=== PATIENT | male | born 1940 | race Caucasian/White ===

== ENCOUNTER 2016-05-27 09:17 | Observation (INO) | payer MEDICARE ==
[2016-05-27] MEDS ORDERED: Sodium Chloride 0.9% 1,000 ML IV STA ×2 (09:58→10:58)
--- NOTE | 2016-05-27 10:04 | ED PDOC ---
Arrival/HPI - General Chief Complaint: GI Problem Time Seen by Provider: 05/27/16 09:48 Historian: Patient - History of Present Illness Narrative History of Present Illness (Text): 05/27/16 09:49 Pt is a 76 year old male, whose past medical history includes hypertension and high cholesterol, who presents to the emergency room complaining of frequent vomiting and diarrhea since yesterday. Patient's family notes that patient cannot tolerate any food and his diarrhea is a very dark color. Patient's notes that she had diarrhea as well but it is not uncommon for her due to a stomach problems. At present, patient experiences abdominal discomfort (crampy in nature) and dry mouth. Patient denies any other complaint at this time. No fever. PMD: Dr. Kaci Baxter Time/Duration: 24 hours Symptom Onset: Sudden Symptom Course: Intermittent Activities at Onset: Light Context: Home Past Medical History - Provider Review Nursing Documentation Reviewed: Yes - Infectious Disease Hx of Infectious Diseases: None - Tetanus Immunization Tetanus Immunization: Unknown - Cardiac Hx Hypertension: Yes - Psychiatric Hx Psychophysiologic Disorder: No Hx Anxiety: No Hx Bipolar Disorder: No Hx Depression: No Hx Emotional Abuse: No Hx Hallucinations: No Hx Panic Disorder: No Hx Post Traumatic Stress Disorder: No Hx Psychosis: No Hx Physical Abuse: No Hx Schizophrenia: No Hx Sexual Abuse: No Hx Substance Use: No - Past Surgical History Past Surgical History: No Previous - Surgical History Hx Cholecystectomy: Yes Other/Comment: hernia - Anesthesia Hx Anesthesia: Yes Hx Anesthesia Reactions: No Hx Malignant Hyperthermia: No - Suicidal Assessment Feels Threatened In Home Enviroment: No Family/Social History - Physician Review Nursing Documentation Reviewed: Yes Family/Social History: Diabetes, Neoplasm/Cancer Smoking Status: Never Smoked Hx Alcohol Use: No Hx Substance Use: No Hx Substance Use Treatment: No Allergies/Home Meds Allergies/Adverse Reactions: Allergies No Known Allergies Allergy (Verified 05/27/16 09:25) Home Medications: Home Meds Medication Instructions Recorded Confirmed Atorvastatin [Lipitor] 40 mg PO DAILY 04/18/14 05/27/16 amLODIPine [Norvasc] 10 mg PO DAILY 04/18/14 05/27/16 Review of Systems - Physician Review All systems were reviewed & negative as marked: Yes - Review of Systems Constitutional: absent: Fevers, Night Sweats Eyes: absent: Vision Changes ENT: absent: Rhinorrhea Respiratory: absent: SOB Cardiovascular: absent: Chest Pain Gastrointestinal: Stool Changes, Diarrhea, Nausea, Vomiting Genitourinary Male: absent: Urinary Output Changes Musculoskeletal: absent: Back Pain Skin: absent: Pruritis Neurological: absent: Dizziness Endocrine: absent: Polyuria Hemo/Lymphatic: absent: Easy Bleeding Psychiatric: absent: Depression Physical Exam Vital Signs Reviewed: Yes Vital Signs Temp Pulse Resp BP Pulse Ox 05/27/16 11:30 101 H 14 123/63 95 05/27/16 09:26 97.9 F 107 H 15 153/79 H 93 L Temperature: Afebrile Blood Pressure: Hypertensive Pulse: Tachycardic Respiratory Rate: Normal Appearance: Positive for: Well-Appearing, Non-Toxic, Comfortable Pain Distress: None Mental Status: Positive for: Alert and Oriented X 3 - Systems Exam Head: Present: Atraumatic, Normocephalic Pupils: Present: PERRL Extroacular Muscles: Present: EOMI Conjunctiva: Present: Normal Ears: Present: Normal Mouth: Present: Dry Nose (External): Present: Atraumatic Neck: Present: Normal Range of Motion Respiratory/Chest: Present: Clear to Auscultation, Good Air Exchange. No: Respiratory Distress, Accessory Muscle Use Cardiovascular: Present: Regular Rate and Rhythm, Normal S1, S2. No: Murmurs Abdomen: Present: Other (protuberant abdomen). No: Tenderness, Normal Bowel Sounds (hyperactive bowel sounds) Rectal: No: Occult Blood Back: Present: Other (moles present on back) Upper Extremity: Present: Normal Inspection. No: Cyanosis, Edema Lower Extremity: Present: Normal Inspection. No: Edema Neurological: Present: GCS=15, Speech Normal, Motor Func Grossly Intact, Normal Sensory Function Skin: Present: Warm, Dry, Rashes Psychiatric: Present: Alert, Oriented x 3, Normal Insight, Normal Concentration Medical Decision Making ED Course and Treatment: 05/27/16 09:49 Impression: Vomiting/Diarrhea Differential Diagnosis included but are not limited to: Gastroenteritis, infectious diarrhea--bacterial or viral in etiology Plan: -- EKG -- Labs -- Pepcid -- IV fluids -- Urinalysis -- Reassess and disposition Progress Notes: Reviewed EKG, sinus tachycardia at 103 bpm. Occasional EVC's, no ST-t wave changes. Pt w/ elevated BUN/Creatinine--will place on observation for further hydration; discussed with Medicine senior integration developer (Dr. Causey) and he agrees w/ plan - Lab Interpretations Lab Results: 05/27/16 10:29 05/27/16 10:29 Lab Results 05/27/16 11:20: Hemoglobin A1c 6.4, Uric Acid 9.2 H, Triglycerides 175 H, Cholesterol 166, LDL Cholesterol Direct 89, HDL Cholesterol 42, TSH 3rd Generation 1.12, Hepatitis A IgM Ab Negative, Hep Bs Antigen Negative, Hep B Core IgM Ab Negative, Hepatitis C Antibody Negative 05/27/16 10:30: Stool Occult Blood Negative 05/27/16 10:29: WBC 10.4 D, RBC 4.89, Hgb 14.7, Hct 41.8 L, MCV 85.5, MCH 30.1 , MCHC 35.2, RDW 14.4, Plt Count 306, MPV 10.2, Gran % 85.0 H, Lymph % (Auto) 7.1 L, Sauk % (Auto) 7.8 H, Eos % (Auto) 0.0 L, Baso % (Auto) 0.1, Gran # 8.80 H , Lymph # 0.7 L, Sauk # 0.8 H, Eos # 0.0, Baso # 0.01, PT 11.7, INR 1.08, APTT 26.3, Sodium 140, Potassium 3.9, Chloride 98, Carbon Dioxide 26, Anion Gap 20, BUN 39 H, Creatinine 2.0 H, Est GFR ( Amer) 39, Est GFR (Non-Af Amer) 32 , Random Glucose 143 H, Calcium 9.8, Total Bilirubin 0.6, AST 71 H, ALT 96 H, Alkaline Phosphatase 77, Total Protein 9.1 H, Albumin 5.0 H, Globulin 4.1, Albumin/Globulin Ratio 1.2, Amylase 94, Lipase 193 I have reviewed the lab results: Yes - RAD Interpretation Radiology Orders: 05/27/16 11:32 ABD & PELVIS PO CONTRAST ONLY [CT] Stat 05/27/16 11:43 ABDOMEN COMPLETE [US] Urgent - EKG Interpretation EKG Interpretation (Text): Ordered, reviewed, and independently interpreted the EKG. Rate : 103 BPM Rhythm : Sinus Tachycardia Interpretation : Occasional EVC's, no ST-T wave changes. - Medication Orders Current Medication Orders: Acetaminophen (Tylenol 325mg Tab) 650 mg PO Q4H PRN PRN Reason: Other Allopurinol (Zyloprim) 100 mg PO DAILY FOR[facility]LY [facility], [facility] Last Admin: 05/28/16 09:17 Dose: 100 MG Dicyclomine HCl (Bentyl) 10 mg PO QID PRN PRN Reason: ABDOMINAL PAIN Sodium Chloride (Sodium Chloride 0.9%) 1,000 mls @ 100 mls/hr IV .Q10H LARRY Stop: 05/31/16 15:44 Last Admin: 05/28/16 09:17 Dose: 100 MLS/HR eMAR Start Stop Document 05/28/16 09:17 EP (Rec: 05/28/16 09:17 EP [id number]) Intravenous Solution Start Date 05/28/16 Start Time 09:17 Ceftriaxone Sodium (Rocephin 1 Gram Ivpb) 100 mls @ 100 mls/hr IVPB DAILY [facility], [facility]1983 PRN Reason: Protocol Last Admin: 05/28/16 17:13 Dose: 100 MLS/HR eMAR Start Stop Document 05/28/16 17:13 EP (Rec: 05/28/16 17:14 EP [id number]) Intravenous Solution Start Date 05/28/16 Start Time 17:14 End Date 05/28/16 End time 18:14 Total Infusion Time 60 Lactobacillus Acidophilus (Bacid Acidophilus) 1 cap PO BID FOR[facility]LY [facility], 1928–1983 Last Admin: 05/28/16 17:13 Dose: 1 CAP Metoprolol Tartrate (Lopressor) 25 mg PO Q12H [facility], [facility]1983 Last Admin: 05/28/16 11:03 Dose: Metronidazole (Flagyl) 500 mg PO Q8 [facility]1983 PRN Reason: Protocol Last Admin: 05/28/16 13:57 Dose: 500 MG Ondansetron HCl (Zofran Inj) 4 mg IVP Q4H PRN PRN Reason: Nausea/Vomiting Pantoprazole Sodium (Protonix Inj) 40 mg IVP DAILY [facility] Last Admin: 05/28/16 09:17 Dose: 40 MG IVP Administration Document 05/28/16 09:17 EP (Rec: 05/28/16 09:17 EP [id number]) Charges for Administration # of IVP Administrations 1 Discontinued Medications Acetaminophen (Tylenol 325mg Tab) 650 mg PO ONCE ONE Stop: 05/28/16 08:19 Last Admin: 05/28/16 08:45 Dose: 650 MG MAR Pain/Vitals Document 05/28/16 08:45 EP (Rec: 05/28/16 08:46 EP [id number]) Vitals Temperature (97.6 F-99.6 F) 100.3 F Temperature Source Oral Dicyclomine HCl (Bentyl) 10 mg PO QID PRN PRN Reason: ABDOMINAL PAIN Diphenhydramine HCl (Benadryl) 25 mg PO ONCE ONE Stop: 05/27/16 22:51 Last Admin: 05/27/16 22:59 Dose: 25 MG Famotidine (Pepcid) 20 mg IVP STAT STA Stop: 05/27/16 10:00 Last Admin: 05/27/16 10:49 Dose: 20 MG IVP Administration Document 05/27/16 10:49 SS (Rec: 05/27/16 10:49 [facility] [id number] Charges for Administration # of IVP Administrations 1 Sodium Chloride (Sodium Chloride 0.9%) 1,000 mls @ 999 mls/hr IV .Q1H1M STA Stop: 05/27/16 10:58 Last Admin: 05/27/16 10:34 Dose: 999 MLS/HR eMAR Start Stop Document 05/27/16 10:34 SS (Rec: 05/27/16 10:35 [facility] [id number] Intravenous Solution Start Date 05/27/16 Start Time 10:35 End Date 05/27/16 End time 11:36 Total Infusion Time 61 Sodium Chloride (Sodium Chloride 0.9%) 1,000 mls @ 999 mls/hr IV .Q1H1M STA Stop: 05/27/16 11:58 Last Admin: 05/27/16 11:51 Dose: 999 MLS/HR eMAR Start Stop Document 05/27/16 11:51 SS (Rec: 05/27/16 11:51 [facility] [id number]) Intravenous Solution Start Date 05/27/16 Start Time 11:51 End Date 05/27/16 End time 12:52 Total Infusion Time 61 Potassium Phosphate 15 mmole/ (Sodium Chloride) 255 mls @ 42.5 mls/hr IVPB ONCE ONE Stop: 05/28/16 13:18 Last Admin: 05/28/16 09:13 Dose: 42.5 MLS/HR Comments: awaitng pharm then IV bolus. eMAR Start Stop Document 05/28/16 09:13 EP (Rec: 05/28/16 09:14 EP [id number]) Intravenous Solution Start Date 05/28/16 Start Time 09:14 Sodium Chloride (Sodium Chloride 0.9%) 250 mls @ 999 mls/hr IV .Q16M STA Stop: 05/28/16 08:54 Last Admin: 05/28/16 08:47 Dose: 999 MLS/HR eMAR Start Stop Document 05/28/16 08:47 EP (Rec: 05/28/16 08:47 [id number]) Intravenous Solution Start Date 05/28/16 Start Time 08:47 End Date 05/28/16 End time 09:47 Total Infusion Time 60 Ibuprofen (Motrin Tab) 400 mg PO STAT STA Stop: 05/27/16 11:15 Last Admin: 05/27/16 11:21 Dose: 400 MG MAR Pain/Vitals Document 05/27/16 11:21 SS (Rec: 05/27/16 11:28 SS [facility] [id number]) Location Left, Right or Bilateral Bilateral Pain Location Body Sound Installation Worker Intensity 5 Scale Used Numeric Influenza Virus Vaccine (Fluvirin) 45 mcg IM .ONCE ONE Stop: 05/27/16 16:50 Iohexol (Omnipaque 240 (50 Ml)) Confirm Administered Dose 50 ml .ROUTE .STK-MED ONE Stop: 05/27/16 11:46 Metoprolol Tartrate (Lopressor) 25 mg PO ONCE ONE Stop: 05/28/16 08:20 Last Admin: 05/28/16 08:45 Dose: 25 MG MAR Pulse and Blood Pressure Document 05/28/16 08:45 EP (Rec: 05/28/16 08:45 EP [id number]) Pulse Pulse Rate (60-90) 120 Blood Pressure Blood Pressure (100/60-150/90) 118/66 Pneumococcal Polyvalent Vaccine (Pneumovax 23 Vaccine) 0.5 ml IM .ONCE ONE Stop: 05/27/16 16:50 Potassium Chloride (Potassium Chloride Oral Soln) 40 meq PO STAT STA Stop: 05/28/16 07:20 Last Admin: 05/28/16 08:46 Dose: 40 MEQ - Scribe Statement The provider has reviewed the documentation as recorded by the Lashae Rayo Provider Scribe Attestation: All medical record entries made by the Scribe were at my direction and personally dictated by me. I have reviewed the chart and agree that the record accurately reflects my personal performance of the history, physical exam, medical decision making, and the department course for this patient. I have also personally directed, reviewed, and agree with the discharge instructions and disposition. Disposition/Present on Arrival - Present on Arrival Any Indicators Present on Arrival: No History of DVT/PE: No History of Uncontrolled Diabetes: No Urinary Catheter: No History of Decub. Ulcer: No History Surgical Site Infection Following: None - Disposition Have Diagnosis and Disposition been Completed?: Yes Diagnosis: Gastroenteritis Disposition: HOSPITALIZED Disposition Time: 11:45 Condition: FAIR
[2016-05-27 10:43] LABS: ADD MANUAL DIFF? NO
[2016-05-27 10:50] LABS: BASO # 0.01 K/mm3 (0.0-2.0); BASO % 0.1 % (0.0-3.0); HEMATOCRIT 41.8 % (42.0-52.0); LYMPH # 0.7 (1.2-3.4); LYMPH % 7.1 % (22.0-35.0); MEAN CELL VOLUME 85.5 fL (80.0-105.0); MEAN CORPUSCULAR HEMOGLOBIN 30.1 pg (25.0-35.0); MEAN CORPUSCULAR HGB CONC 35.2 g/dl (31.0-37.0); MEAN PLATELET VOLUME 10.2 fl (7.0-11.0); MONO # 0.8 (0.1-0.6); MONO % 7.8 % (1.0-6.0); PLATELET COUNT 306 10^3/uL (120.0-450.0); RED CELL DISTRIBUTION WIDTH 14.4 % (11.5-14.5); WHITE BLOOD COUNT 10.4 10^3/ul (4.5-11.0)
[2016-05-27 10:55] LABS: ALB/GLOB RATIO 1.2 (1.1-1.8); BILIRUBIN,TOTAL 0.6 mg/dL (0.2-1.3); CALCIUM 9.8 mg/dL (8.4-10.5); POTASSIUM 3.9 mmol/L (3.6-5.0); TOTAL PROTEIN 9.1 g/dL (5.8-8.3)
[2016-05-27 10:58] LABS: INR 1.08 (0.93-1.08); PARTIAL THROMBOPLASTIN TIME 26.3 Seconds (23.7-30.8)
[2016-05-27] MEDS ORDERED: Iohexol 240 (50 ml) ONE (11:45)
[2016-05-27 11:52] LABS: URIC ACID 9.2 mg/dL (3.5-8.5)
[2016-05-27] MEDS: Sodium Chloride 0.9% 1,000 ML IV SCH ×2 (12:38→22:43)
[2016-05-27 13:01] LABS: URINE BILIRUBIN NEGATIVE (NEGATIVE); URINE BLOOD LARGE (NEGATIVE); URINE COLOR YELLOW (YELLOW); URINE GLUCOSE (UA) NEGATIVE (NEGATIVE); URINE KETONE NEGATIVE (NEGATIVE); URINE LEUKOCYTE ESTERASE NEGATIVE Leu/uL (NEGATIVE); URINE PROTEIN 30 mg/dL (<30 mg/dL); URINE UROBILINOGEN 0.2 E.U./dL (<1 E.U./dL)
[2016-05-27 13:03] LABS: URINE APPEARANCE SL CLOUDY (CLEAR)
[2016-05-27 13:11] LABS: URINE BACTERIA FEW (NEG); URINE EPITHELIAL CELLS 0 - 2 /hpf (0-5); URINE WBC 0 - 2 /hpf (0-6)
--- NOTE | 2016-05-27 13:51 | US ---
HISTORY: TRANSAMINITIS COMPARISON: None. TECHNIQUE: Sonographic evaluation of the abdomen. FINDINGS: LIVER: Measures 20 cm. Diffuse increased echogenicity of the liver parenchyma. No mass. No intrahepatic bile duct dilatation. GALLBLADDER: Nonvisualized consistent with prior cholecystectomy COMMON BILE DUCT: Measures 6.4 mm. No stones. No dilatation. PANCREAS: Unremarkable as visualized. No mass. No ductal dilatation. RIGHT KIDNEY: Measures 11cm. Normal echogenicity. No calculus, mass, or hydronephrosis. LEFT KIDNEY: Measures 11cm. Normal echogenicity. No calculus, mass, or hydronephrosis. SPLEEN: Normal in size and contour. No mass. AORTA: No aneurysmal dilatation. IVC: Unremarkable. OTHER FINDINGS: Prominent bowel gas IMPRESSION: Hepatomegaly with diffuse increased liver echogenicity. The latter consistent with diffuse fatty infiltration or diffuse liver parenchymal disease Status postcholecystectomy. No dilated ducts
--- NOTE | 2016-05-27 14:11 | HP ---
The patient is a 76-year-old male, presented to the Emergency Room in the morning hours today complesteban leon of a 1-day history of nausea, vomiting, diarrhea with dark stool and frequent urination since . The patient stated that he was fine until after he was shoveling snow and after that, later in the evening yesterday and afternoon, the patient developed above symptoms. A 13-system review wa s pertinent, positive for above dictated. A 13-system review was done. Pertinent positives dictated above. CODE STATUS: Full code. LIVING WILL AND ADVANCED DIRECTIVE: None. ALLERGIES: None. Height is 5 feet 7 inches. Weight is 180 pounds. BMI is 28.2. ALLERGIES: None. HOME MEDICATIONS: Norvasc 10 mg daily, Lipitor 40 mg daily. SOCIAL HISTORY: Negative for smoking, negative for alcohol, negative for substance abuse. OCCUPATIONAL HISTORY: Not employed at present. FAMILY HISTORY: Negative. PROCEDURE HISTORY: The patient had an endoscopy and colonoscopy according to the patient's daughter, , a few years ago by Dr. Elder in [place]. PAST MEDICAL AND SURGICAL HISTORY: History of hypertension, dyslipidemia, history of cholecystectomy , history of hernia surgery, history of dyslipidemia, hypercholesterolemia, hypertension, history of hernia surgery. PHYSICAL EXAMINATION: GENERAL: The patient seen initially in stretcher #4 in the Emergency Room. The patient was later ev aluated in room 563, bed 2. VITAL SIGNS: T-max 97.9, heart rate 101, 107, blood pressure 153/79-123/63, respirations 14-15, O2 s at 95%. The patient is seen lying in the stretcher. HEAD: Normocephalic, atraumatic. HEENT: Shows pink conjunctivae, dry oral mucosa. NECK: No neck rigidity. CHEST: Symmetrical. LUNGS: Shows no rales, crackles, or wheezing. CARDIOVASCULAR: S1, S2, regular rhythm. ABDOMEN: Protuberant, distended, positive hyperactive bowel sound, questionable epigastric periumbil ical guarding noted. No rebound tenderness noted. No costovertebral angle tenderness. GENITALIA: Male. RECTAL: Deferred. EXTREMITIES: Shows no pitting edema, no calf tenderness, no Homans sign. NEUROLOGIC: The patient is alert, awake, oriented x 3. Cranial nerves II-XII intact. GAIT: Not tested. MUSCULOSKELETAL: Shows a body mass index of 28. PSYCHIATRIC: Negative for anxiety. Negative for depression. Negative for suicidal or homicidal venu ation. Negative for visual or auditory hallucination. VASCULAR: Palpable pulses. DIAGNOSTICS: CBC: WBC 10.4, hemoglobin and hematocrit 14.7 and 42, platelets 306, granulocytes 85%. PT, PTT 11.7 and 26.3. Sodium 140, potassium 3.9, chloride 98, CO2 26, anion gap 20, BUN is 39, cr eatinine 2.0, GFR 39, glucose 143. Uric acid 9.2. Calcium 9.8, AST 71, ALT 96, total protein 9.1, a lbumin 5.0. Triglyceride 175, cholesterol 166, LDL 89, HDL 42. Amylase and lipase are normal at 94 and 193. TSH is 1.12. Urine pH 6.0, specific gravity is greater than 1.030, protein 30, large blood , few bacteria. Stool occult blood negative. The patient had an abdominal ultrasound done in the Emergency Room for evaluation of transaminitis, w hich shows hepatomegaly with liver size of 20 cm x 1.1 cm x 0.4 cm x 10 cm with increased echogenicit y, cholecystectomy noted, bile duct 0.64 mm, spleen and inferior vena cava within normal limits, bila teral kidneys were normal. CAT scan of the abdomen and pelvis pending. The patient was seen and evaluated in the Emergency Room by Dr. Calderón, the ER physician. The patient was given Motrin 400. The patient was given Pepcid 20 IV. IV fluid was given, 2 liters were given by Dr. Brennan Calderón and patient was advised to be admitted to medicine service. IMPRESSION AND PLAN: 1. Nausea, vomiting and diarrhea, etiology unclear at this time. 2. Possible gastroenteritis versus questionable and possible colitis. 3. Tachycardia. 4. History of hypertension and dyslipidemia. 5. Acute kidney injury and acute renal failure. 6. Granulocytosis. 7. Acute kidney injury. 8. Hyperglycemia. 9. Hyperuricemia. 10. Transaminitis. 11. History of dyslipidemia with hypertriglyceridemia and hypercholesterolemia. 12. Proteinuria and microscopic hematuria and bacteriuria. 13. Hepatic steatosis and hepatomegaly. 14. Status post cholecystectomy. The patient was seen and evaluated in the Emergency Room in room 563, bed 2. The patient at present has been admitted to [facility]. The patient has been ordered hemoglobin A1c, hepatitis panel, PSA, serial CMP, LFT, magnesium, phosphorus, CBC ordered. C. diff toxin ordered. Stool cultu res ordered. CONSULTATION: Gastroenterology. CURRENT MEDICATIONS: 1. Bentyl has been ordered 10 mg q.i.d. p.r.n. for abdominal pain and cramping. 2. Protonix 40 IV daily. 3. IV fluids 0.9 normal saline at 100 mL an hour. 4. Zofran 4 mg IV q. 4 p.r.n. 5. Allopurinol 100 mg p.o. daily. CAT scan of the abdomen and pelvis with oral contrast is ordered. At present, patient is in the proc ess of drinking the oral contrast. The patient's EKG, though ordered, but I am unable to find the EK G on the chart, which will be reviewed. The patient is started on liquid diet, out of bed. ERIC stoc kings have been ordered. At present, patient was seen with the patient's family including the a nd the daughter, . I have explained to the patient and the patient's family about the diagnosti c test results. All the details of further diagnostic therapeutic intervention, need for gastroenter ology evaluation, need for possible gastroenterology workup, need for further management, treatment, and all possible scenarios was discussed and explained to the patient and the patient's daughter and the at length and all questions and concerns answered to their satisfaction. At present, patien t's further management will be dependent upon the patient's clinical condition, hemodynamic status, a nd as per patient's response to therapeutic intervention, as per patient's diagnostic test results an d as per recommendation by all the physicians involved in the care of the patient. Dictated and electronically signed, not read. Sylvester Causey MD cc: [id number] TT: 05/27/2016 14:10:44 en
--- NOTE | 2016-05-27 15:42 | CT ---
PROCEDURE: CT Abdomen and Pelvis without intravenous contrast HISTORY: ??GASTROENTERITIS COMPARISON: None. TECHNIQUE: Without contrast.. Contrast Dose: Radiation dose: Total exam DLP = mGy-cm. FINDINGS: LOWER THORAX: Unremarkable. LIVER: Unremarkable. No gross lesion or ductal dilatation. GALLBLADDER AND BILE DUCTS: Gallbladder removed PANCREAS: Unremarkable. No gross lesion or ductal dilatation. SPLEEN: Unremarkable. ADRENALS: Unremarkable. No mass. KIDNEYS AND URETERS: Unremarkable. No hydronephrosis. No solid mass. VASCULATURE: Unremarkable. No aortic aneurysm. BOWEL: Unremarkable. No obstruction. No gross mural thickening. APPENDIX: Unremarkable. Normal appendix. PERITONEUM: Unremarkable. No free fluid. No free air. LYMPH NODES: Unremarkable. No enlarged lymph nodes. BLADDER: Unremarkable. REPRODUCTIVE: Calcifications are seen in the prostate BONES: No acute fracture. OTHER FINDINGS: None. IMPRESSION: No acute findings
[2016-05-27 16:39] VITALS: RESP 20
[2016-05-27 16:49] VITALS: BMI 28.1
[2016-05-27] MEDS ORDERED: Pneumococcal 23-Valent Vaccine IM ONE (16:49)
[2016-05-27] MEDS ORDERED: Influenza Vaccine 45 MCG/0.5 ml IM ONE (16:49)
--- NOTE | 2016-05-27 16:52 | CARD ---
APPROVED REPORT EKG Measurement Heart [id number] IA [id number] <Conclusion> Sinus tachycardia with premature ventricular complexes NSSTW changes Prolonged QTc
[2016-05-27 20:34] LABS: FREE T4 0.82 ng/dL (0.78-2.19); T4 6.2 ug/dL (5.5-11.0)
[2016-05-28 06:39] LABS: ADD MANUAL DIFF? NO
[2016-05-28 06:56] LABS: ALKALINE PHOSPHATASE 64 U/L (38-133); ALT/SGPT 81 U/L (7-56); AST/SGOT 149 U/L (15-59); BILIRUBIN,DIRECT 0.3 mg/dL (0.0-0.4); BILIRUBIN,TOTAL 0.6 mg/dL (0.2-1.3); BLOOD UREA NITROGEN 19 mg/dL (7-21); CALCIUM 7.9 mg/dL (8.4-10.5); CARBON DIOXIDE 24 mmol/L (21-33); CHLORIDE 105 mmol/L (98-107); GFR AFRICAN-AMERICAN > 60; GLUCOSE,RANDOM 115 mg/dL (70-110); MAGNESIUM 1.8 mg/dL (1.7-2.2); PHOSPHOROUS 2.4 mg/dL (2.5-4.5); POTASSIUM 3.2 mmol/L (3.6-5.0); SODIUM 141 mmol/L (132-148); TOTAL PROTEIN 7.3 g/dL (5.8-8.3)
[2016-05-28 07:11] LABS: BASO # 0.01 K/mm3 (0.0-2.0); BASO % 0.1 % (0.0-3.0); GRAN # 6.89 (1.4-6.5); GRAN % 78.6 % (50.0-68.0); HEMATOCRIT 36.6 % (42.0-52.0); LYMPH # 0.9 (1.2-3.4); LYMPH % 10.3 % (22.0-35.0); MEAN CELL VOLUME 85.1 fL (80.0-105.0); MEAN CORPUSCULAR HEMOGLOBIN 29.8 pg (25.0-35.0); MEAN PLATELET VOLUME 9.9 fl (7.0-11.0); PLATELET COUNT 231 10^3/uL (120.0-450.0); RED CELL DISTRIBUTION WIDTH 14.5 % (11.5-14.5); WHITE BLOOD COUNT 8.8 10^3/ul (4.5-11.0)
[2016-05-28] MEDS ORDERED: Potassium Phosphate 15 MMOLE in Sodium Chloride 0.9% 250 ML IVPB ONE (07:19)
[2016-05-28] MEDS ORDERED: Potassium Chloride 40 mEq/30 ml LIQ UD PO STA (07:19)
[2016-05-28] MEDS ORDERED: Sodium Chloride 0.9% 250 ML IV STA (08:39)
[2016-05-28] MEDS: Lactobacillus Acidophilus 500 MU Cap PO SCH ×2 (08:45→17:13)
[2016-05-28] MEDS: Sodium Chloride 0.9% 1,000 ML IV SCH (09:17)
--- NOTE | 2016-05-28 10:28 | CARD ---
APPROVED REPORT EKG Measurement Heart [id number] <Conclusion> Sinus tachycardia Nonspecific ST abnormality Mildly prolonged QTc No change
--- NOTE | 2016-05-28 10:43 | CON ---
DATE: 05/28/2016 REQUESTING PHYSICIAN: Dr. Causey. REASON FOR CONSULTATION: I have been asked to see this 76-year-old male who comes to the hospital [facility] a 1-day history of nausea, vomiting, and profuse watery diarrhea. The patient states that he was well the day prior to these symptoms. He denies any ingestion of unusual foods, recent travel, or re cent antibiotic use. He denied any abdominal pain. The patient has taken food since admission to [facility], he has not had any nausea and vomiting. His diarrhea has subsided. He did have a colono scopy about 5 years ago. PAST MEDICAL HISTORY: Notable for hypertension, hyperlipidemia. PAST SURGICAL HISTORY: Notable for cholecystectomy, hernia surgery. SOCIAL HISTORY: Denies cigarette smoking or alcohol use. FAMILY HISTORY: Noncontributory. REVIEW OF SYSTEMS: A 14-point review of systems is notable for nausea, vomiting, diarrhea. PHYSICAL EXAMINATION: GENERAL: Well-developed male lying in bed in no acute distress. VITAL SIGNS: Reveal temperature of 100.3, blood pressure 118/66, heart rate of 120. HEENT: Reveals sclerae to be white, conjunctivae pink. Oral mucosa is moist. NECK: Supple. CHEST: Reveals lungs to be clear. HEART: Reveals a regular rate and rhythm. ABDOMEN: Soft, nontender. No mass. EXTREMITIES: Show no edema. LABORATORY DATA: Reveal potassium 3.2, AST 149, ALT 81. Albumin is 3.7. CBC reveals white blood ce ll count 8.8, hemoglobin 12.8, platelet count of 231,000. Stool for occult blood was negative. CT s can of the abdomen and pelvis is negative for any acute findings. Ultrasound of the abdomen shows an enlarged fatty liver. IMPRESSION: A 76-year-old male with a 1-day history of nausea, vomiting, diarrhea. His symptoms hav e essentially resolved. He is tolerating food. I suspect that this was a gastroenteritis. RECOMMENDATIONS: 1. Check stool for C and S, O and P, and C. diff. 2. If the patient continues to improve clinically, he can be discharged home with outpatient followu p. Seng Cosby MD cc: [id number] TT: 05/28/2016 10:42:18 Confirmation # [id number] Dictation # [id number]
--- NOTE | 2016-05-28 11:49 | PN ---
DATE: 05/28/2016 The patient is seen today in room 573, bed 1. The patient was seen lying in the bed. Overnight nurs e's notes were reviewed. The patient had loose bowel movement and diarrhea last night. PHYSICAL EXAMINATION: VITAL SIGNS: The patient's T-max is 100.3, heart rate went up to 120. Blood pressure fluctuatin/79, 125/63, 118/66. Respirations 20, O2 sat 96%. HEAD: Normocephalic, atraumatic. EENT: Shows pinkish conjunctivae. Dry oral mucosa. NECK: No neck rigidity. CHEST: Symmetrical. LUNGS: Shows no rales, crackles, or wheezing. CARDIOVASCULAR: S1, S2, regular rhythm. ABDOMEN: Soft, protuberant, positive bowel sounds. GENITALIA: Male. RECTAL: Deferred. EXTREMITIES: Shows no pitting edema, no calf tenderness, no Homans' sign. NEUROLOGIC: The patient is alert, awake, oriented x 3. Cranial nerves II-XII intact. GAIT: Indepe ndent. VASCULAR: Palpable pulses. MUSCULOSKELETAL: Shows a body mass index of 28.2. PSYCHIATRIC: Negative. VASCULAR: Palpable pulses. DIAGNOSTICS: 05/28/2016: WBC 8.8, hemoglobin and hematocrit 12.8 and 36.6, platelet 231. Granulocy julian down to 79% from 85%. Sodium 141, potassium 3.2, chloride 105, CO2 of 24, anion gap 15, BUN 19, creatinine 1.2, GFR greater than 60, glucose 115, hemoglobin A1c 6.4, uric acid 9.2, calcium 7.9, hanny sphorus 2.4, magnesium 1.8. AST went up to 149, ALT 81. Lactic acid and procalcitonin level ordered . PSA 2.2. TSH 1.12, T4 6.2. Stool occult blood negative. Hepatitis A, B, C serologies are negati ve. CAT scan of the abdomen, ultrasound and EKG reviewed. EKG from this morning shows sinus tachyca rdia, nonspecific ST changes. Abdominal ultrasound and CAT scan of the abdomen and pelvis were revie wed. IMPRESSION AND PLAN: 1. Questionable and probable systemic inflammatory response syndrome with fever, tachycardia. 2. Granulocytosis. 3. Uric acid 9.2. 4. Tachycardia. 5. Normocytic anemia. 6. Hyperuricemia. 7. Transaminitis. 8. Hypokalemia. 9. Prediabetes with hemoglobin A1c of 6.4. 10. Hypokalemia and hypophosphatemia. 11. Proteinuria. 12. Microscopic hematuria, bacteriuria. 13. Status post cholecystectomy. 14. Hepatomegaly with fatty infiltration of the liver. 15. Cholecystectomy. 16. Prostatic calcification. 17. Sinus tachycardia. 18. Nausea, vomiting, diarrhea (resolving). 19. Questionable gastroenteritis versus questionable colitis. 20. History of hypertension, dyslipidemia. 21. Acute kidney injury versus acute renal failure (resolved). 22. Hyperglycemia with prediabetes with hemoglobin A1c of 6.4. 23. Proteinuria, microscopic hematuria, bacteriuria. 24. Hepatic steatosis and hepatomegaly. PLAN: At this time, the patient has been ordered stat lactic acid. Serial labs have been ordered. Blood cultures, C. diff toxin and stool cultures, stool ova and parasite ordered. Urine cultures ord ered. CURRENT CONSULTATIONS: Infectious disease (Dr. Browne), GI (Dr. Cosby). MEDICATIONS: The patient started on: 1. Bacid 1 capsule twice a day. 2. Bentyl 10 mg q.i.d. p.r.n. 3. Flagyl 500 p.o. q. 8. 4. Lopressor 25 mg q. 12. 5. The patient has been supplemented potassium p.o. and K-Phos rider. 6. Protonix 40 IV daily. 7. IV fluid bolus has been given 250, then 100 mL an hour 0.9 normal saline. 8. Tylenol 650 mg q. 4 hours p.r.n. for temperature greater than or equal to 99.5. 9. Zofran 4 mg IV q. 4. 10. Allopurinol 100 mg daily. Chest x-ray, PA and lateral, ordered. The patient is on liquid diet. Out of bed, ERIC stockings have been ordered. At present, patient's further management will be dependent upon the patient's clinica l condition, hemodynamic status, and as per patient's response to therapeutic intervention, as per [place] stroenterology and infectious disease recommendation. Dictated and electronically signed; not read. Sylvester Causey MD cc: [id number] TT: 05/28/2016 11:48:35 Confirmation # [id number] Dictation # [id number] mn
--- NOTE | 2016-05-28 14:36 | RAD ---
HISTORY: low grade temp COMPARISON: No prior. TECHNIQUE: Chest PA and lateral FINDINGS: LUNGS: No active pulmonary disease. PLEURA: No significant pleural effusion identified. No pneumothorax apparent. CARDIOVASCULAR: Normal. OSSEOUS STRUCTURES: No significant abnormalities. VISUALIZED UPPER ABDOMEN: Normal. OTHER FINDINGS: None. IMPRESSION: No active disease.
--- NOTE | 2016-05-28 16:48 | CP.PCM.CON ---
History of Present Illness - History of Present Illness History of Present Illness: 76 year old male with PMH of HTN, dyslipidemia, S/P cholecystectomy, history of hernia surgery came in to [facility] complaining of multiple episodes of bilious vomiting associated with nausea which started about 2 days ago. About 3 days ago the patient apparently took cabbage soup together with his . A day later he started having the symptoms. His is apparently having diarrhea today. He denies chest pain, no headache or dizziness, has some abdominal cramping, no fever at home but had low grade fever while admitted, no dysuria, no hematuria, no dysphagia or odynophagia, no sore throat, no rhinorrhea, no cough, no SOB, no chest pain. He denies hospitalization or antibiotic use in the past 3 months and has not had any recent travel outside of [place] either. He denies animal contacts. Because of the low grade fever , Infectious Diseases consult is requested to further evaluate and manage. Social history: denies smoking, no alcohol abuse, no illicit drug use; lives at home with his ; currently unemployed Review of Systems - Review of Systems All systems: reviewed and no additional remarkable complaints except (as per HPI ) Past Patient History - Infectious Disease Hx of Infectious Diseases: None - Tetanus Immunizations Tetanus Immunization: Unknown - Past Medical History & Family History Past Medical History?: Yes Past Family History: Reviewed and not pertinent - Past Social History Smoking Status: Former Smoker Alcohol: None Drugs: Denies Home Situation {Lives}: With Family - CARDIAC Hx Hypercholesterolemia: Yes Hx Hypertension: Yes Other/Comment: vein stripping rle 2 yrs ago - INTEGUMENTARY Other/Comment: skin discolorations rle from vein strippoing 2 yrs ago - MUSCULOSKELETAL/RHEUMATOLOGICAL Hx Falls: No - GASTROINTESTINAL Hx Gastrointestinal Disorders: Yes (upper mid abd hernia no sx, found 15 yrs ago ) - PSYCHIATRIC Hx Substance Use: No - SURGICAL HISTORY Hx Cholecystectomy: Yes - ANESTHESIA Hx Anesthesia: Yes Hx Anesthesia Reactions: No Hx Malignant Hyperthermia: No Meds Home Medications: Home Medication List Medication Instructions Recorded Confirmed Type Allopurinol [Zyloprim] 100 mg PO DAILY #30 tab 05/28/16 Rx Dicyclomine [Bentyl] 10 mg PO QID PRN #30 cap 05/28/16 Rx Lactobacillus Acidophilus [Bacid 1 cap PO BID #10 cap 05/28/16 Rx Acidophilus] metroNIDAZOLE [Flagyl] 500 mg PO Q8 #30 tab 05/28/16 Rx Allergies/Adverse Reactions: Allergies Allergy/AdvReac Type Severity Reaction Status Date / Time No Known Allergies Allergy Verified 05/27/16 09:25 - Medications Medications: Current Medications Acetaminophen (Tylenol 325mg Tab) 650 mg PO Q4H PRN PRN Reason: Other Allopurinol (Zyloprim) 100 mg PO DAILY [facility] Last Admin: 05/27/16 18:24 Dose: 100 mg Dicyclomine HCl (Bentyl) 10 mg PO QID PRN PRN Reason: ABDOMINAL PAIN Sodium Chloride (Sodium Chloride 0.9%) 1,000 mls @ 100 mls/hr IV .Q10H [facility] Stop: 05/31/16 15:44 Last Admin: 05/27/16 22:43 Dose: 100 mls/hr Potassium Phosphate 15 mmole/ (Sodium Chloride) 255 mls @ 42.5 mls/hr IVPB ONCE ONE Stop: 05/28/16 13:18 Lactobacillus Acidophilus (Bacid Acidophilus) 1 cap PO BID [facility] Last Admin: 05/28/16 08:45 Dose: 1 cap Metoprolol Tartrate (Lopressor) 25 mg PO Q12H [facility] Metronidazole (Flagyl) 500 mg PO Q8 [facility] PRN Reason: Protocol Last Admin: 05/28/16 08:46 Dose: 500 mg Ondansetron HCl (Zofran Inj) 4 mg IVP Q4H PRN PRN Reason: Nausea/Vomiting Pantoprazole Sodium (Protonix Inj) 40 mg IVP DAILY [facility] Last Admin: 05/27/16 11:39 Dose: 40 mg Physical Exam - Constitutional Appears: Non-toxic, No Acute Distress - Head Exam Head Exam: NORMAL INSPECTION - ENT Exam ENT Exam: Mucous Membranes Moist - Neck Exam Neck exam: Negative for: Lymphadenopathy, Meningismus - Respiratory Exam Respiratory Exam: Decreased Breath Sounds. absent: Rales - Cardiovascular Exam Cardiovascular Exam: +S1, +S2 - GI/Abdominal Exam GI & Abdominal Exam: Soft. absent: Tenderness Results - Vital Signs Recent Vital Signs: Last Vital Signs Temp 100.3 F H 05/28/16 08:45 Pulse 120 H 05/28/16 08:45 Resp 20 05/28/16 07:30 BP 118/66 05/28/16 08:45 Pulse Ox 96 05/28/16 07:30 - Labs Result Diagrams: 05/28/16 06:30 05/28/16 06:30 Labs: Laboratory Results - last 24 hr 05/27/16 05/27/16 05/27/16 12:50 13:26 19:50 WBC RBC Hgb Hct MCV MCH MCHC RDW Plt Count MPV Gran % Lymph % (Auto) [place] % (Auto) Eos % (Auto) Baso % (Auto) Gran # Lymph # [place] # Eos # Baso # Sodium Potassium Chloride Carbon Dioxide Anion Gap BUN Creatinine Est GFR ( Amer) Est GFR (Non-Af Amer) Random Glucose Calcium Phosphorus Magnesium Total Bilirubin Direct Bilirubin AST ALT Alkaline Phosphatase Total Protein Albumin Globulin Albumin/Globulin Ratio Prostate Specific Ag 2.2 Free T4 0.82 Thyroxine (T4) 6.2 Urine Color Yellow Urine Appearance Sl cloudy Urine pH 6.0 Ur Specific Golden >= 1.030 Urine Protein 30 H Urine Glucose (UA) Negative Urine Ketones Negative Urine Blood Large H Urine Nitrate Negative Urine Bilirubin Negative Urine Urobilinogen 0.2 Ur Leukocyte Esterase Negative Urine RBC 1 - 3 Urine WBC 0 - 2 Ur Epithelial Cells 0 - 2 Urine Bacteria Few 05/28/16 06:30 WBC 8.8 RBC 4.30 Hgb 12.8 L Hct 36.6 L MCV 85.1 MCH 29.8 MCHC 35.0 RDW 14.5 Plt Count 231 MPV 9.9 Gran % 78.6 H Lymph % (Auto) 10.3 L [place] % (Auto) 11.0 H Eos % (Auto) 0.0 L Baso % (Auto) 0.1 Gran # 6.89 H Lymph # 0.9 L [place] # 1.0 H Eos # 0.0 Baso # 0.01 Sodium 141 Potassium 3.2 L Chloride 105 Carbon Dioxide 24 Anion Gap 15 BUN 19 Creatinine 1.2 Est GFR ( Amer) > 60 Est GFR (Non-Af Amer) 59 Random Glucose 115 H Calcium 7.9 L Phosphorus 2.4 L Magnesium 1.8 Total Bilirubin 0.6 Direct Bilirubin 0.3 AST 149 H ALT 81 H Alkaline Phosphatase 64 Total Protein 7.3 Albumin 3.7 Globulin 3.6 Albumin/Globulin Ratio 1.0 L Prostate Specific Ag Free T4 Thyroxine (T4) Urine Color Urine Appearance Urine pH Ur Specific Golden Urine Protein Urine Glucose (UA) Urine Ketones Urine Blood Urine Nitrate Urine Bilirubin Urine Urobilinogen Ur Leukocyte Esterase Urine RBC Urine WBC Ur Epithelial Cells Urine Bacteria Assessment & Plan - Assessment and Plan (Free Text) Plan: Assessment Consider acute gastroenteritis; no evidence of C diff infection on stool exam HTN dyslipidemia S/P cholecystectomy history of hernia surgery Plan Started patient on Rocephin and Flagyl pending stool cx, stool for O and P, fecal leukocytes Follow up blood cx as well Will follow clinically and monitor clinical response
[2016-05-28] MEDS: cefTRIAXone 1 gm 100 ML IVPB SCH (17:13)
[2016-05-29] MEDS: Sodium Chloride 0.9% 1,000 ML IV SCH ×2 (05:46→05:48)
[2016-05-29 06:46] LABS: ADD MANUAL DIFF? NO
[2016-05-29 07:14] LABS: BASO # 0.01 K/mm3 (0.0-2.0); BASO % 0.1 % (0.0-3.0); EOS % 0.1 % (1.5-5.0); GRAN # 4.21 (1.4-6.5); GRAN % 61.6 % (50.0-68.0); LYMPH # 1.8 (1.2-3.4); LYMPH % 26.5 % (22.0-35.0); MEAN CELL VOLUME 86.1 fL (80.0-105.0); MEAN CORPUSCULAR HEMOGLOBIN 29.2 pg (25.0-35.0); MEAN CORPUSCULAR HGB CONC 33.9 g/dl (31.0-37.0); MEAN PLATELET VOLUME 10.1 fl (7.0-11.0); MONO # 0.8 (0.1-0.6); MONO % 11.7 % (1.0-6.0); PLATELET COUNT 201 10^3/uL (120.0-450.0); RED CELL DISTRIBUTION WIDTH 14.8 % (11.5-14.5); WHITE BLOOD COUNT 6.8 10^3/ul (4.5-11.0)
[2016-05-29 07:18] LABS: ALKALINE PHOSPHATASE 55 U/L (38-133); ALT/SGPT 82 U/L (7-56); AST/SGOT 139 U/L (15-59); BILIRUBIN,DIRECT 0.4 mg/dL (0.0-0.4); BILIRUBIN,TOTAL 0.5 mg/dL (0.2-1.3); BLOOD UREA NITROGEN 15 mg/dL (7-21); CARBON DIOXIDE 24 mmol/L (21-33); CHLORIDE 108 mmol/L (98-107); GFR AFRICAN-AMERICAN > 60; GLUCOSE,RANDOM 98 mg/dL (70-110); PHOSPHOROUS 2.5 mg/dL (2.5-4.5); POTASSIUM 3.5 mmol/L (3.6-5.0); SODIUM 141 mmol/L (132-148); TOTAL PROTEIN 6.8 g/dL (5.8-8.3)
[2016-05-29 07:56] VITALS: BP 131/82; PULSE 81; TEMP 98; O2SAT 96
[2016-05-29] MEDS: Potassium Chloride 40 mEq/30 ml LIQ UD PO SCH ×2 (09:00→11:17)
[2016-05-29] MEDS: Lactobacillus Acidophilus 500 MU Cap PO SCH (09:01)
[2016-05-29] MEDS: cefTRIAXone 1 gm 100 ML IVPB SCH (09:02)
--- NOTE | 2016-05-29 10:27 | DS ---
The patient is seen in room 573, bed 1. The patient is lying in the bed. The patient states that he has no diarrhea today, but he had 1 or 2 episodes yesterday. The patient reports no watery diarrhea , soft stool. REVIEW OF SYSTEMS: A 13-system review was done. Pertinent positive and negative dictated above. PHYSICAL EXAMINATION: VITAL SIGNS: The patient's T-max in the last 24 hours 100.3, down to 99.8 to 98.9, heart rate 81, 94 , 88. Yesterday heart rate 109, 120s. GENERAL: The patient is seen lying in the bed. HEAD: Normocephalic, atraumatic. HEENT: Shows pinkish conjunctivae, dry oral mucosa. NECK: No neck rigidity. CHEST: Symmetrical. LUNGS: Shows no rales, crackles, or wheezing. CARDIOVASCULAR: Shows S1, S2, regular rhythm. ABDOMEN: Soft, protuberant, positive bowel sounds, no voluntary guarding, no rebound tenderness, no costovertebral angle tenderness. GENITALIA: Male. RECTAL: Deferred. EXTREMITIES: Shows no pitting edema, no calf tenderness, no Homans' sign. NEUROLOGIC: The patient is alert, awake, oriented x 3. LUNGS: Shows no rales, crackles or wheezing. EXTREMITIES: Shows no pitting edema, no calf tenderness, no Homans' sign. No clubbing, no cyanosis. VASCULAR: Palpable pulses. NEUROLOGIC: The patient is alert, awake, oriented x 3. Cranial nerves II-XII intact. GAIT: Independent. MUSCULOSKELETAL: Shows a body mass index of 28.2. CRANIAL NERVES: Intact. DIAGNOSTICS: 05/29: WBC 6.8, hemoglobin and hematocrit 12.2 and 36.2, platelet 201, granulocytes derrick n to 61, which has gone down from 85. Sodium 141, potassium 3.5, chloride 108, CO2 24, anion gap 13, BUN 15, creatinine 1.2, GFR greater than 60, glucose 59. Creatinine has come down to 1.2 from 2.0. Glucose 98. Hemoglobin A1c was 6.4. Lactic acid is 1.5, calcium 8.0, phosphorus 2.5, magnesium 2.0 . AST is down to 139 from 149, ALT is 82 down from 96. Rest of the LFTs are normal. Procalcitonin level less than 0.05. Stool occult blood negative. Hepatitis A, B, C serologies negative. Blood cu ltures no growth 24 hours. C. diff antigen and toxin negative. Chest x-ray, which was done yesterda y, shows no pneumonia, no congestive heart failure. EKG done yesterday shows sinus tachycardia. Ian dennis's EKG pending. IMPRESSION AND PLAN: 1. Systemic inflammatory response syndrome with fever, tachycardia. 2. Possible acute gastroenteritis (resolving). 3. Granulocytosis. 4. Normocytic anemia. 5. Acute renal failure and acute kidney injury. 6. Hypokalemia. 7. Hypomagnesemia and hypophosphatemia. 8. Transaminitis, etiology undetermined. 9. History of hypertension and dyslipidemia. 10. Proteinuria, microscopic hematuria, bacteriuria. 11. Fatty infiltration of the liver with hepatic steatosis and status post cholecystectomy. 12. Prostatic calcification, etiology undetermined. 13. Sinus tachycardia with nonspecific ST-T changes. 14. History of hypertension and dyslipidemia. 15. Gastroenteritis. 16. Granulocytosis. 17. Hyperuricemia. 18. Transaminitis. 19. Prediabetes with hemoglobin A1c of 6.4. 20. Proteinuria, microscopic hematuria, bacteriuria. 21. Symptomatic acute gastroenteritis with symptoms of nausea, vomiting, diarrhea. 22. Hyperglycemia with prediabetes and hemoglobin A1c of 6.4. PLAN: At this time, patient seen by gastroenterology, infectious disease. Their recommendations not ed and reviewed, which were also explained to the patient, which he acknowledged and understands. The patient's daughter was attempted to be contacted and the family was attempted to be contacted on phone number [phone]. Voice mail message was left. At present, patient is to be continued on t he treatment as per MAY. The patient has been ordered serial labs. We are awaiting for final stool cultures, blood cultures and urine cultures. CURRENT CONSULTATIONS: Infectious disease and gastroenterology. CURRENT MEDICATIONS: 1. Bacid 1 capsule twice a day. 2. Bentyl 10 mg q.i.d. p.r.n. 3. Flagyl 500 p.o. q. 8 hours. 4. Lopressor 25 mg q. 12. 5. The patient has been supplemented with potassium yesterday and patient will be given a potassium dose oral. 6. The patient is on Protonix 40 IV daily. 7. Rocephin 1 gram IV daily. 8. IV fluids 0.9 normal saline at 100 mL an hour. 9. Tylenol 650 q. 4 p.r.n. for temperature greater than or equal to 99.5. 10. Zofran 4 mg IV q. 4 p.r.n. 11. Allopurinol 100 mg daily. Repeat EKG from today has been ordered. The patient's diet will be increased today to altered gastro intestinal hepatic diet since patient has complete resolution of nausea, vomiting and diarrhea. We w ill await further recommendations regarding continuation or discontinuation of the IV antibiotics fro m infectious disease and further recommendation from GI. If patient is cleared for discharge today, the patient will be discharged home as per the medications of the updated ambulatory orders. Dictated and electronically signed, not read. Sylvester Causey MD cc: [id number] TT: 05/29/2016 10:26:14 en
--- NOTE | 2016-05-29 10:46 | CARD ---
APPROVED REPORT EKG Measurement Heart [id number] <Conclusion> Normal sinus rhythm NSSTW changes
--- NOTE | 2016-05-29 13:40 | CP.PCM.PN ---
Subjective - Date & Time of Evaluation Date of Evaluation: 05/29/16 Time of Evaluation: 11:10 - Subjective Subjective: Patient feels much better, diarrhea is much improved, no fevers, no nausea and no more vomiting. No abdominal cramps or pain. Objective - Vital Signs/Intake and Output Vital Signs (last 24 hours): Temp Pulse Resp BP Pulse Ox 98.0 F 81 20 131/82 96 05/29/16 07:55 05/29/16 08:05 05/29/16 07:55 05/29/16 08:05 05/29/16 07:55 Intake and Output: 05/29/16 05/29/16 06:59 18:59 Intake Total 1760 Balance 1760 - Medications Medications: Current Medications Acetaminophen (Tylenol 325mg Tab) 650 mg PO Q4H PRN PRN Reason: Other Allopurinol (Zyloprim) 100 mg PO DAILY [facility] Last Admin: 05/29/16 09:01 Dose: 100 mg Dicyclomine HCl (Bentyl) 10 mg PO QID PRN PRN Reason: ABDOMINAL PAIN Sodium Chloride (Sodium Chloride 0.9%) 1,000 mls @ 100 mls/hr IV .Q10H [facility] Stop: 05/31/16 15:44 Last Admin: 05/29/16 05:48 Dose: 100 mls/hr Ceftriaxone Sodium (Rocephin 1 Gram Ivpb) 100 mls @ 100 mls/hr IVPB DAILY [facility] PRN Reason: Protocol Last Admin: 05/29/16 09:02 Dose: 100 mls/hr Lactobacillus Acidophilus (Bacid Acidophilus) 1 cap PO BID [facility] Last Admin: 05/29/16 09:01 Dose: 1 cap Metoprolol Tartrate (Lopressor) 25 mg PO Q12H [facility] Last Admin: 05/29/16 08:05 Dose: 25 mg Metronidazole (Flagyl) 500 mg PO Q8 [facility] PRN Reason: Protocol Last Admin: 05/29/16 05:46 Dose: 500 mg Ondansetron HCl (Zofran Inj) 4 mg IVP Q4H PRN PRN Reason: Nausea/Vomiting Pantoprazole Sodium (Protonix Inj) 40 mg IVP DAILY [facility] Last Admin: 05/29/16 09:01 Dose: 40 mg Potassium Chloride (Potassium Chloride Oral Soln) 40 meq PO Q2H [facility] Stop: 05/29/16 10:46 Last Admin: 05/29/16 09:00 Dose: 40 meq - Labs Labs: 05/29/16 06:20 05/29/16 06:20 PT 11.7 Seconds (9.9-11.8) 05/27/16 10:29 INR 1.08 (0.93-1.08) 05/27/16 10:29 APTT 26.3 Seconds (23.7-30.8) 05/27/16 10:29 - Constitutional Appears: Non-toxic, No Acute Distress - Head Exam Head Exam: NORMAL INSPECTION - ENT Exam ENT Exam: Mucous Membranes Moist - Neck Exam Neck Exam: absent: Lymphadenopathy, Meningismus - Respiratory Exam Respiratory Exam: Decreased Breath Sounds. absent: Rales - Cardiovascular Exam Cardiovascular Exam: +S1, +S2 - GI/Abdominal Exam GI & Abdominal Exam: Soft. absent: Tenderness Assessment and Plan - Assessment and Plan (Free Text) Plan: Assessment Consider acute gastroenteritis; no evidence of C diff infection on stool exam; clinically improving HTN dyslipidemia S/P cholecystectomy history of hernia surgery Plan on Rocephin and Flagyl (day 2); blood and stool cx are negative Patient can be switched to PO Vantin and Flagyl for another 3-5 days with outpatient follow up with PMD Discussed with Dr. Causey
== END 2016-05-29 15:06 | disposition home or self-care (01) ==
LOC: ED 09:17 → ERH 11:45 → 5RNO 12:49 → 5RSO 22:18
PROVIDERS: ADMIT Internal Medicine; ATTEND Internal Medicine
DX: K52.9 Noninfective gastroenteritis and colitis, unspecified (principal); R65.10 Systemic inflammatory response syndrome (SIRS) of non-infectious origin without acute organ dysfunction; I10 Essential (primary) hypertension; E78.00 Pure hypercholesterolemia, unspecified; N17.9 Acute kidney failure, unspecified; R73.9 Hyperglycemia, unspecified; E79.0 Hyperuricemia without signs of inflammatory arthritis and tophaceous disease; E78.1 Pure hyperglyceridemia; K76.0 Fatty (change of) liver, not elsewhere classified; R16.0 Hepatomegaly, not elsewhere classified; R00.0 Tachycardia, unspecified; D64.9 Anemia, unspecified; E87.6 Hypokalemia; R73.03 Prediabetes; R80.9 Proteinuria, unspecified; N42.89 Other specified disorders of prostate; R31.29 Other microscopic hematuria; E83.39 Other disorders of phosphorus metabolism; Z87.891 Personal history of nicotine dependence; Z90.49 Acquired absence of other specified parts of digestive tract
CPT/HCPCS: 36415; 71020; 74176; 76700; 80053; 80061; 80074; 81001; 82150; 82248; 83036; 83605; 83690; 83735; 84100; 84145; 84153; 84439; 84443; 84550; 85025; 85610; 85730; 87040; 87045; 87086; 87177; 87209; 87324; 89055; 93005; 96361; 96365; 96366; 96375; 96376; 99283; C9113; G0328; G0378; J0696; J3480; J7040; Q9966